=== PATIENT | male | born 1955 | race Caucasian/White ===

== ENCOUNTER 2018-09-19 16:20 | Inpatient (IN) ==
[2018-09-19] MEDS ORDERED: KETOROLAC TROMETHAMINE 15 MG/ML VIAL IV STA (16:54)
[2018-09-19] MEDS ORDERED: MoRPHine SULFATE 4 MG/ML 1 ML CARP\\VIAL IV STA ×2 (16:54→18:16)
[2018-09-19] MEDS ORDERED: ONDANSETRON INJ 2 MG/ML 2 ML VIAL IV STA (16:54)
[2018-09-19] MEDS ORDERED: SODIUM CHLORIDE 0.9% 1000ML 1,000 ML IV SCH (17:00)
[2018-09-19 17:25] LABS: Basophils # (auto) 0.02 K/uL (0-0.2); Basophils % (auto) 0.1 %; Hematocrit (blood only) 48.6 % (42-52); Hemoglobin 17.3 g/dL (14.0-18.0); Immature Granulocytes # (auto) 0.06 K/uL (0.00-0.02); Immature Granulocytes % (auto) 0.3 %; Lymphocytes # (auto) 0.55 K/uL (1.2-3.4); Lymphocytes % (auto) 3.2 %; Mean Corpuscular Hgb Conc 35.6 g/dL (32-36); Mean Corpuscular Volume 86.2 fL (80-100); Monocytes # (auto) 0.61 K/uL (0.11-0.59); Monocytes % (auto) 3.6 %; Neutrophils # (auto) 15.91 K/uL (1.4-6.5); Neutrophils % (auto) 92.8 %; Platelet Count 235 K/uL (130-400); RDW Coefficient of Variation 12.6 % (11.5-14.5); Red Blood Count 5.64 M/uL (4.7-6.1); White Blood Count 17.15 K/uL (4.8-10.8)
--- NOTE | 2018-09-19 17:42 | CT Scan Report ---
CT SCAN OF THE ABDOMEN AND PELVIS WITHOUT CONTRAST CLINICAL HISTORY: left flank and abd pain, hx kidney stones COMPARISON STUDY: 06/30/2016 TECHNIQUE: CT scan of the abdomen and pelvis was performed from the lung bases to the proximal femurs . Images are reviewed in the axial, sagittal, and coronal planes. IV contrast was not administered fo r this examination. A dose lowering technique was utilized adhering to the principles of ALARA. CT DOSE: 875.73 mGy.cm FINDINGS: Lower chest: There are mild dependent atelectatic changes. There are no significant pleural effusions . Liver: The unenhanced liver is normal in size, contour, and attenuation. There is no intrahepatic [place]red[place] iary ductal dilatation. Gallbladder: Unremarkable. Spleen: Normal in size and attenuation. Pancreas: Unremarkable. Adrenal glands: Unremarkable. Kidneys: 4 right renal calculi are visualized the largest of which measures 4 mm. There is a 9 mm low er pole left renal calculus. There is left-sided hydronephrosis and left-sided perinephric stranding. There is left-sided ureteral dilatation with moderate left-sided periureteral edema. There is fluid tracking along the left ureter likely secondary to forniceal rupture. There are 2 obstructing calculi at the level of the left ureterovesical junction measuring 9 mm and 8 mm respectively. Bowel: There are no transition zones indicate bowel obstruction. There is colonic diverticulosis. The re are no acute peridiverticular inflammatory changes. The appendix appears normal. Peritoneum: There is no intraperitoneal free air or abdominal ascites. Vasculature: The abdominal aorta is normal in course and caliber. Adenopathy: None. Pelvic viscera: There is mild prostatic enlargement. Skeletal structures: No destructive osseous lesions are seen. IMPRESSION: 1. Bilateral nephrolithiasis 2. There are 2 left UVJ calculi measuring 9 mm and 8 mm respectively. There are secondary obstructive changes with findings suggesting forniceal rupture. 3. No evidence of bowel obstruction. No evidence of free air 4. Normal appendix. No evidence of acute diverticulitis. Electronically signed by: Wesley Mario M.D. 09/19/2018 5:41 PM
[2018-09-19 17:45] LABS: Alanine Aminotransferase 33 U/L (12-78); Albumin Level 4.5 gm/dl (3.4-5.0); Aspartate Aminotransferase 24 U/L (15-37); BUN Creatinine Ratio 9.9 (10-20); Blood Urea Nitrogen 15 mg/dl (7-18); Calcium 9.1 mg/dl (8.5-10.1); Carbon Dioxide 28 mmol/L (21-32); Chloride 102 mmol/L (98-107); Est GFR (African American) 56.2; Est GFR (Non-African American) 48.5; Glucose 146 mg/dl (70-99); Potassium 4.3 mmol/L (3.5-5.1); Sodium 137 mmol/L (136-145)
[2018-09-19 17:48] LABS: Albumin Globulin Ratio 1.2 (0.9-2); Alkaline Phosphatase 101 U/L (45-117); Bilirubin,Total 0.8 mg/dl (0.2-1); Globulin 3.9 gm/dl (2.5-4.0); Total Protein 8.4 gm/dl (6.4-8.2)
[2018-09-19] MEDS ORDERED: KETOROLAC TROMETHAMINE 15 MG/ML VIAL IV ONE (18:17)
--- NOTE | 2018-09-19 18:57 | Emergency Department Note ---
Entered by Efrain Miramontes acting as a scribe for History of Present Illness General Chief complaint: Kidney Stone Stated complaint: LT KIDNEY PAIN, NAUSEA, VOMITING, CHILLS Time Seen by Provider: 09/19/18 16:27 Source: patient History of Present Illness Provider complaint: left flank pain Onset (ago): hour(s) 9 Location: back and abdomen Pain Consistency: + other (waxing and waning) Maximum Pain Intensity: 8 Quality: + other (kidney stone) Associated symptoms: + diaphoresis and + fever/chills; no nausea/vomiting (- vomiting) The patient is a 63 year old male who presents to the Emergency Room with complaints of waxing and waning left flank pain which started between 0900 and 1000 today. Patient also states he is experiencing back pain. The patient rates his pain at an 8/10. He is experiencing nausea and diarrhea but denies vomiting. He also reports experiencing chills and is sweating. Home Medications Home Medications Medication Instructions Recorded Confirmed Type aspirin [Aspirin Low Dose] 81 mg PO DAILY 09/19/18 09/19/18 History methylcellulose (with sugar) 1 tbsp PO DAILY 09/19/18 09/19/18 History [Citrucel (sucrose)] simvastatin 20 mg PO DAILY 09/19/18 09/19/18 History Allergies Allergy/AdvReac Type Severity Reaction Status Date / Time Sulfa (Sulfonamide Allergy HIVES Verified 09/19/18 17:38 Antibiotics) Past Med/Surg History Medical History Renal colic (Acute) Right ureteral calculus Social History Feels Safe at Home: Yes Smoking Status: Never smoker Preferred Language: Estonian Review of Systems See HPI for pertinent positives & negatives. and A total of 10 systems reviewed and were otherwise negative Physical Exam Vital Signs Vital Signs - 24 hr 09/19/18 16:23 09/19/18 18:30 09/19/18 18:39 Temperature 36.5 C Temperature Source Oral Sepsis Recent Fever Within 48 Hours No Sepsis New/Unexplained Change in Mental Status No Sepsis Action Taken by Nursing No Action Required Pulse Rate 68 68 Pulse Rate [Radial] 94 H Pulse Rhythm Regular Regular Pulse Rhythm [Radial] Regular Pulse Strength Normal Respiratory Rate 20 18 18 Respiratory Effort / Characteristics Non-Labored Spontaneous Respiratory Depth Normal Normal Respiratory Pattern Regular Blood Pressure 178/103 H Blood Pressure [Right Arm] 161/101 H Blood Pressure Mean 128 Blood Pressure Mean [Right Arm] 121 Blood Pressure Position Sitting Pulse Oximetry 95 95 95 Oxygen Delivery Method Room Air Room Air Room Air CONSTITUTIONAL/VITAL SIGNS: Reviewed / noted above. GENERAL: Non-toxic in appearance. INTEGUMENTARY: Warm, dry, and [place]. HEAD: Normocephalic. EYES: without scleral icterus or trauma. ENT/OROPHARYNX: clear and moist. LYMPHADENOPATHY/NECK: Is supple without lymphadenopathy or meningismus. RESPIRATORY: Lungs clear and equal. CARDIOVASCULAR: Regular rate and rhythm. GI/ABDOMEN: Soft and nontender. No organomegaly or pulsatile mass. No rebound or guarding. Normal bowel sounds. EXTREMITIES: Warm and well perfused. BACK: No CVA tenderness. NEUROLOGICAL: Intact without focal deficits. PSYCHIATRIC: normal affect. MUSCULOSKELETAL: Normally developed with good muscle tone. Course 162: Past medical records reviewed. The patient was evaluated in room A11, and a complete history and physical examination were performed. 1836- I spoke to hospitalist. Nohemi Angel who will evaluate the patient for further managment. 1845: I updated the patient who verbalized agreement and understanding of the treatment plan. Consultations Consultation #1: Nohemi Angel Time: 18:36 Administered Medications Discontinued Medications Sodium Chloride (Nss 1000ml) 1,000 mls @ 999 mls/hr IV .Q1H1M FRIDA Stop: 09/19/18 18:00 Last Infusion: 09/19/18 18:15 Dose: 0 mls/hr Admin: 09/19/18 17:12 Dose: 999 mls/hr Ketorolac Tromethamine (Toradol) 15 mg IV NOW STA Stop: 09/19/18 16:55 Last Admin: 09/19/18 17:12 Dose: 15 mg Morphine Sulfate (Morphine Sulfate) 4 mg IV NOW STA Stop: 09/19/18 16:55 Last Admin: 09/19/18 17:12 Dose: 4 mg Ondansetron HCl (Zofran) 4 mg IV NOW STA Stop: 09/19/18 16:55 Last Admin: 09/19/18 17:12 Dose: 4 mg Medical Decision Making Differential Diagnosis I considered cholelithiasis, cholecystitis, bowel obstruction, diverticulitis , pancreatitis, renal colic, appendicitis inflammatory bowel disease, gastritis , and peptic/gastric ulcer disease. Medical Records Attestation: I reviewed the patient's medical records. Home Medications Current Medication List: was personally reviewed by me Laboratory Data Attestation: I reviewed the patient's lab results. Result diagrams: 09/19/18 17:10 09/19/18 17:10 Lab Results 09/19/18 09/19/18 Range/Units 17:10 17:10 WBC 17.15 H (4.8-10.8) K/uL RBC 5.64 (4.7-6.1) M/uL Hgb 17.3 (14.0-18.0) g/dL Hct 48.6 (42-52) % MCV 86.2 (80-100) fL MCH 30.7 (25-34) pg MCHC 35.6 (32-36) g/dL RDW Std Deviation 40.0 (36.4-46.3) fL RDW Coeff of Diane 12.6 (11.5-14.5) % Plt Count 235 (130-400) K/uL MPV 9.0 (7.4-10.4) fL Immature Gran % (Auto) 0.3 % Neut % (Auto) 92.8 % Lymph % (Auto) 3.2 % [place] % (Auto) 3.6 % Eos % (Auto) 0.0 % Baso % (Auto) 0.1 % Immature Gran # (Auto) 0.06 H (0.00-0.02) K/uL Neut # (Auto) 15.91 H (1.4-6.5) K/uL Lymph # (Auto) 0.55 L (1.2-3.4) K/uL [place] # (Auto) 0.61 H (0.11-0.59) K/uL Eos # (Auto) 0.00 (0-0.5) K/uL Baso # (Auto) 0.02 (0-0.2) K/uL Sodium 137 (136-145) mmol/L Potassium 4.3 (3.5-5.1) mmol/L Chloride 102 (98-107) mmol/L Carbon Dioxide 28 (21-32) mmol/L Anion Gap 6.0 (3-11) BUN 15 (7-18) mg/dl Creatinine 1.51 H (0.6-1.4) mg/dl Est Cr Clr Drug Dosing Not Reportable Est GFR ( Amer) 56.2 Est GFR (Non-Af Amer) 48.5 BUN/Creatinine Ratio 9.9 L (10-20) Glucose 146 H (70-99) mg/dl Calcium 9.1 (8.5-10.1) mg/dl Total Bilirubin 0.8 (0.2-1) mg/dl AST 24 (15-37) U/L ALT 33 (12-78) U/L Alkaline Phosphatase 101 (45-117) U/L Total Protein 8.4 H (6.4-8.2) gm/dl Albumin 4.5 (3.4-5.0) gm/dl Globulin 3.9 (2.5-4.0) gm/dl Albumin/Globulin Ratio 1.2 (0.9-2) Lipase 74 (73-393) U/L Imaging Data Attestation: I personally reviewed and interpreted this imaging study as follows : Radiologist's Impression: Radiology results as stated below per my review and the radiologist's interpretation: CT SCAN OF THE ABDOMEN AND PELVIS WITHOUT CONTRAST CLINICAL HISTORY: left flank and abd pain, hx kidney stones COMPARISON STUDY: 06/30/2016 TECHNIQUE: CT scan of the abdomen and pelvis was performed from the lung bases to the proximal femurs. Images are reviewed in the axial, sagittal, and coronal planes. IV contrast was not administered for this examination. A dose lowering technique was utilized adhering to the principles of ALARA. CT DOSE: 875.73 mGy.cm FINDINGS: Lower chest: There are mild dependent atelectatic changes. There are no significant pleural effusions. Liver: The unenhanced liver is normal in size, contour, and attenuation. There is no intrahepatic biliary ductal dilatation. Gallbladder: Unremarkable. Spleen: Normal in size and attenuation. Pancreas: Unremarkable. Adrenal glands: Unremarkable. Kidneys: 4 right renal calculi are visualized the largest of which measures 4 mm. There is a 9 mm lower pole left renal calculus. There is left-sided hydronephrosis and left-sided perinephric stranding. There is left-sided ureteral dilatation with moderate left-sided periureteral edema. There is fluid tracking along the left ureter likely secondary to forniceal rupture. There are 2 obstructing calculi at the level of the left ureterovesical junction measuring 9 mm and 8 mm respectively. Bowel: There are no transition zones indicate bowel obstruction. There is colonic diverticulosis. There are no acute peridiverticular inflammatory changes. The appendix appears normal. Peritoneum: There is no intraperitoneal free air or abdominal ascites. Vasculature: The abdominal aorta is normal in course and caliber. Adenopathy: None. Pelvic viscera: There is mild prostatic enlargement. Skeletal structures: No destructive osseous lesions are seen. IMPRESSION: 1. Bilateral nephrolithiasis 2. There are 2 left UVJ calculi measuring 9 mm and 8 mm respectively. There are secondary obstructive changes with findings suggesting forniceal rupture. 3. No evidence of bowel obstruction. No evidence of free air 4. Normal appendix. No evidence of acute diverticulitis. Electronically signed by: Wesley Mario M.D. 09/19/2018 5:41 PM Blood Pressure Blood Pressure Findings: Elevated blood pressure Blood Pressure Disposition: further management by hospitalist MDM Narrative This is a 63-year-old male who presents to the ED with a chief complaint of abdominal pain and left-sided flank pain. The patient's symptoms started at 9: 30 in the morning. He had associated nausea but no vomiting. He states that he has not had any fevers or urinary symptoms. He reports some abdominal pain that feels like a band around his abdomen. He reports a history of kidney stones. His initial blood pressure was elevated. The patient has an relatively unremarkable exam. A CT scan of the abdomen pelvis reveals 2 ureteral stones at 9 mm and 8 mm. There is also evidence of secondary obstructive changes with suspected forniceal rupture. The white blood cell count is 17.5. The patient required several doses of pain medication here including IV Toradol and IV morphine. Because of his pain, the patient will be seen by the hospitalist for further evaluation and care. Impression & Plan Renal colic, Left ureteral stone Discharge Plan Visit Data Chief Complaint: Kidney Stone Stated Complaint: LT KIDNEY PAIN, NAUSEA, VOMITING, CHILLS ED Provider: Drew Lynn Discharge Problem: Renal colic, Left ureteral stone Patient Disposition: Being Evaluated by Hospitalist Forms Stand Alone Forms: [employer] Prescriptions Prescriptions: No Action aspirin [Aspirin Low Dose] 81 mg Tablet,Delayed Release (Dr/Ec) 81 mg PO DAILY RF: 0 simvastatin 20 mg tablet 20 mg PO DAILY RF: 0 methylcellulose (with sugar) [Citrucel (sucrose)] Powder 1 tbsp PO DAILY RF: 0 Referrals Referrals: Shahbaz Whitman [Primary Care Provider] - The scribe's documentation has been prepared under my direction and personally reviewed by me in its entirety. I confirm that the note above accurately reflects all work, treatment, procedures, and medical decision making performed by me.
[2018-09-19 19:32] LABS: Appearance Urine Clear (Clear); Bacteria Urine Automated Negative (Negative); Bilirubin Urine Negative (Negative); Cast Urine Automated 0 /lpf (0-5); Color Urine Yellow; Glucose Urine UA Trace (Negative); Ketones Urine 1+ (Negative); Leukocyte Esterase Urine Negative (Negative); Nitrite Urine Negative (Negative); Protein Urine Negative (Negative); Specific Gravity Urine 1.017 (1.000-1.030); Urobilinogen Urine Negative (Negative); WBC Urine Automated 0 /hpf (0-5)
[2018-09-19] MEDS ORDERED: HYDROmorphone INJ 0.5 MG/0.5 ML SYR IV PRN (20:08)
--- NOTE | 2018-09-19 21:03 | History & Physical Report ---
Date of Service September 19, 2018 Assessment & Plan (1) ARF (acute renal failure): Secondary to recurrent obstructive uropathy No sepsis Situational hypertension Hyperglycemia rule out DM ARTUR on CPAP GMF Analgesia Strain urine Monitor creatinine response to IV fluids Urology consult RE obstructive uropathy Check hemoglobin A1C DVT prophylaxis. Heparin subcu Full code History of Present Illness Chief Complaint: Left flank pain Primary Care Provider: Shahbaz Whitman History obtained from patient and records. Medical history significant for hyperlipidemia, urolithiasis, sleep apnea/ narcolepsy on CPAP Recent confinement June 2016 for right UVJ stone status post spontaneous passage. One day history of waxing and waning achy left flank pain similar to any stone pain accompanied by nausea and loose stools. Some chills, no actual fever, no hematuria. Medical History as above Surgical History : Procedures, hernia repair, tonsillectomy, hip surgery Family History : COPD, diabetes Personal/Social history : Non-smoker, no EtOH intake, [employer] employee Allergies Allergy/AdvReac Type Severity Reaction Status Date / Time Sulfa (Sulfonamide Allergy HIVES Verified 09/19/18 17:38 Antibiotics) Home Medications Home Medications Medication Instructions Recorded Confirmed Type aspirin [Aspirin Low Dose] 81 mg PO DAILY 09/19/18 09/19/18 History methylcellulose (with sugar) 1 tbsp PO DAILY 09/19/18 09/19/18 History [Citrucel (sucrose)] simvastatin 20 mg PO DAILY 09/19/18 09/19/18 History Past Med/Surg History Social History Current Living Situation: Spouse Current Living Situation Comment: Amanda Samuel- Other Information That Helps Us Care for You: No Feels Safe at Home: Yes Safety Concerns: Feels Safe At This Time Smoking Status: Never smoker Hx Alcohol Use: No Hx Substance Use: No Beliefs That Will Affect Care: None Communication Ability: Effective Review of Systems As per HPI, all 10 systems reviewed, all other ROS negative Physical Exam 2 Vital Signs (Past 24 Hours): Last Vital Signs Temp 36.5 C 09/19/18 16:23 Pulse 68 09/19/18 18:39 Resp 18 09/19/18 18:39 BP 161/101 H 09/19/18 18:30 Pulse Ox 95 09/19/18 18:39 Physical Exam: GENERAL: Slightly uncomfortable, pleasant, obese, no respiratory distress SKIN: Normal color, warm HEENT: [place] palpebral conjunctivae, no ptosis, dry buccal mucosa NECK : Supple, short neck, no tenderness CHEST : CTA, no tenderness HEART : RRR, no obvious murmurs ABDOMEN: Some distention, left-sided abdominal/flank tenderness EXTREMITIES : No LE swelling/tenderness, no other conspicuous deformities noted NEUROLOGIC : Coherent, no facial asymmetry, no other gross focality Results & Data Laboratory Results Laboratory Results WBC 17.15 K/uL (4.8-10.8) H 09/19/18 17:10 RBC 5.64 M/uL (4.7-6.1) 09/19/18 17:10 Hgb 17.3 g/dL (14.0-18.0) 09/19/18 17:10 Hct 48.6 % (42-52) 09/19/18 17:10 MCV 86.2 fL (80-100) 09/19/18 17:10 MCH 30.7 pg (25-34) 09/19/18 17:10 MCHC 35.6 g/dL (32-36) 09/19/18 17:10 RDW Std Deviation 40.0 fL (36.4-46.3) 09/19/18 17:10 RDW Coeff of Diane 12.6 % (11.5-14.5) 09/19/18 17:10 Plt Count 235 K/uL (130-400) 09/19/18 17:10 MPV 9.0 fL (7.4-10.4) 09/19/18 17:10 Immature Gran % (Auto) 0.3 % 09/19/18 17:10 Neut % (Auto) 92.8 % 09/19/18 17:10 Lymph % (Auto) 3.2 % 09/19/18 17:10 [place] % (Auto) 3.6 % 09/19/18 17:10 Eos % (Auto) 0.0 % 09/19/18 17:10 Baso % (Auto) 0.1 % 09/19/18 17:10 Immature Gran # (Auto) 0.06 K/uL (0.00-0.02) H 09/19/18 17:10 Neut # (Auto) 15.91 K/uL (1.4-6.5) H 09/19/18 17:10 Lymph # (Auto) 0.55 K/uL (1.2-3.4) L 09/19/18 17:10 [place] # (Auto) 0.61 K/uL (0.11-0.59) H 09/19/18 17:10 Eos # (Auto) 0.00 K/uL (0-0.5) 09/19/18 17:10 Baso # (Auto) 0.02 K/uL (0-0.2) 09/19/18 17:10 Sodium 137 mmol/L (136-145) 09/19/18 17:10 Potassium 4.3 mmol/L (3.5-5.1) 09/19/18 17:10 Chloride 102 mmol/L (98-107) 09/19/18 17:10 Carbon Dioxide 28 mmol/L (21-32) 09/19/18 17:10 Anion Gap 6.0 (3-11) 09/19/18 17:10 BUN 15 mg/dl (7-18) 09/19/18 17:10 Creatinine 1.51 mg/dl (0.6-1.4) H 09/19/18 17:10 Est Cr Clr Drug Dosing Not Reportable 09/19/18 17:10 Est GFR ( Amer) 56.2 09/19/18 17:10 Est GFR (Non-Af Amer) 48.5 09/19/18 17:10 BUN/Creatinine Ratio 9.9 (10-20) L 09/19/18 17:10 Glucose 146 mg/dl (70-99) H 09/19/18 17:10 Calcium 9.1 mg/dl (8.5-10.1) 09/19/18 17:10 Total Bilirubin 0.8 mg/dl (0.2-1) 09/19/18 17:10 AST 24 U/L (15-37) 09/19/18 17:10 ALT 33 U/L (12-78) 09/19/18 17:10 Alkaline Phosphatase 101 U/L (45-117) 09/19/18 17:10 Total Protein 8.4 gm/dl (6.4-8.2) H 09/19/18 17:10 Albumin 4.5 gm/dl (3.4-5.0) 09/19/18 17:10 Globulin 3.9 gm/dl (2.5-4.0) 09/19/18 17:10 Albumin/Globulin Ratio 1.2 (0.9-2) 09/19/18 17:10 Lipase 74 U/L (73-393) 09/19/18 17:10 Urine Color Yellow 09/19/18 19:06 Urine Appearance Clear (Clear) 09/19/18 19:06 Urine pH 7.0 (4.5-7.5) 09/19/18 19:06 Ur Specific [place] 1.017 (1.000-1.030) 09/19/18 19:06 Urine Protein Negative (Negative) 09/19/18 19:06 Urine Glucose (UA) Trace (Negative) H 09/19/18 19:06 Urine Ketones 1+ (Negative) H 09/19/18 19:06 Urine Blood 2+ (Negative) H 09/19/18 19:06 Urine Nitrite Negative (Negative) 09/19/18 19:06 Urine Bilirubin Negative (Negative) 09/19/18 19:06 Urine Urobilinogen Negative (Negative) 09/19/18 19:06 Ur Leukocyte Esterase Negative (Negative) 09/19/18 19:06 Urine WBC (Auto) 0 /hpf (0-5) 09/19/18 19:06 Urine RBC (Auto) >30 /hpf (0-4) H 09/19/18 19:06 U Hyaline Cast (Auto) 0 /lpf (0-5) 09/19/18 19:06 U Epithel Cells (Auto) 5-10 /lpf (0-5) H 09/19/18 19:06 Urine Bacteria (Auto) Negative (Negative) 09/19/18 19:[address] abdomen pelvis: 1. Bilateral nephrolithiasis 2. There are 2 left UVJ calculi measuring 9 mm and 8 mm respectively. There are secondary obstructive changes with findings suggesting forniceal rupture. 3. No evidence of bowel obstruction. No evidence of free air 4. Normal appendix. No evidence of acute diverticulitis. EKG as per my interpretation rate 90, NSR, T wave flattening septal leads
[2018-09-19] MEDS ORDERED: LORazepam 0.5 MG/1 ML VIAL IV PRN (22:28)
[2018-09-19] MEDS ORDERED: ACETAMINOPHEN 325 MG TAB PO PRN (22:28)
[2018-09-19] MEDS: SODIUM CHLORIDE 0.9% 1000ML 1,000 ML IV SCH (22:50)
[2018-09-20 06:24] LABS: Estimated Average Glucose 123 mg/dl
[2018-09-20 06:27] LABS: Basophils # (auto) 0.02 K/uL (0-0.2); Basophils % (auto) 0.1 %; Eosinophils % (auto) 0.6 %; Hematocrit (blood only) 45.1 % (42-52); Hemoglobin 15.3 g/dL (14.0-18.0); Immature Granulocytes # (auto) 0.04 K/uL (0.00-0.02); Immature Granulocytes % (auto) 0.3 %; Lymphocytes # (auto) 1.95 K/uL (1.2-3.4); Lymphocytes % (auto) 12.6 %; Mean Corpuscular Hgb Conc 33.9 g/dL (32-36); Mean Corpuscular Volume 87.2 fL (80-100); Mean Platelet Volume 9.2 fL (7.4-10.4); Monocytes # (auto) 1.46 K/uL (0.11-0.59); Monocytes % (auto) 9.4 %; Neutrophils # (auto) 11.88 K/uL (1.4-6.5); Platelet Count 242 K/uL (130-400); RDW Coefficient of Variation 12.9 % (11.5-14.5); RDW Standard Deviation 41.2 fL (36.4-46.3); Red Blood Count 5.17 M/uL (4.7-6.1); White Blood Count 15.45 K/uL (4.8-10.8)
[2018-09-20 06:33] LABS: INR 1.1 (0.9-1.1); Prothrombin Time 11.4 Seconds (9.0-12.0)
[2018-09-20] MEDS: HEPARIN SOD 5,000 UNIT/0.5 ML VIAL SQ SCH ×3 (07:03→20:54)
[2018-09-20 07:05] LABS: BUN Creatinine Ratio 12.2 (10-20); Calcium 8.3 mg/dl (8.5-10.1); Creatinine Clr Calc Pharmacy 54.2 ml/min; Est GFR (African American) 49.4; Est GFR (Non-African American) 42.6
[2018-09-20] MEDS: SIMVASTATIN 20 MG TAB PO SCH (07:11)
[2018-09-20] MEDS: SODIUM CHLORIDE 0.9% 1000ML 1,000 ML IV SCH ×2 (08:44→20:54)
[2018-09-20] MEDS: OXYCODONE/ACETAMINOPHEN 5mg/325mg TAB PO PRN (10:33)
--- NOTE | 2018-09-20 13:03 | Hospitalist Progress Note ---
Date of Service September 20, 2018 Assessment & Plan (1) ARF (acute renal failure): 2/2 obstructive uropathy. Per Urology (2) Renal colic: (3) Bilateral nephrolithiasis: (4) Acute unilateral obstructive uropathy: Flomax, IVF, pain control as needed. Urology consult. Pt is NPO. (5) ARTUR on CPAP: Declines CPAP inpatient. (6) DVT prophylaxis: Heparin/ambulation Full Dipso-per Urology Edith Dunn DO [facility] Hospitalist Subjective 63-year-old male with a history of nephrolithiasis presents with acute left- sided flank pain consistent with renal colic. Continue was found to have a 9 mm stone in the left UPJ and bilateral nephrolithiasis on imaging. Urology has been consulted. He has been placed on IV fluids and given Percocet for pain control to good effect. He does admit to drinking 3 cups of coffee a day plus one soda a day which is a recent cut back from his typical caffeine intake. Otherwise denies any other symptoms at this time. Physical Exam 2 Vital Signs (Past 24 Hours): Last Vital Signs Temp 37.1 C 09/20/18 07:35 Pulse 71 09/20/18 07:35 Resp 16 09/20/18 07:35 BP 124/74 09/20/18 07:35 Pulse Ox 94 09/20/18 07:35 CONSTITUTIONAL: WNWD, vitals as above, generally well-appearing EYES: normal conjuctivae, no scleral icterus ENT: MMM RESPIRATORY: clear to auscultation bilaterally, no crackles, rales or wheezes, normal respiratory effort CARDIOVASCULAR: regular rate and rhythm, S1 and 2 heard without murmurs, gallops or rubs, no edema GASTROINTESTINAL: normal bowel sounds, soft, nontender, nondistended, no CVA tenderness MUSCULOSKELETAL: strength 5/5 throughout, head is normocephalic and atraumatic SKIN: warm and dry NEUROLOGIC: CN 2-12 grossly intact, no sensory deficit, normal cognition PSYCHIATRIC: alert cooperative and oriented to person, place and time. Euthymic mood Results & Data Laboratory Results Short CBC 09/19/18 09/20/18 Range/Units 17:10 05:50 WBC 17.15 H 15.45 H (4.8-10.8) K/uL Hgb 17.3 15.3 (14.0-18.0) g/dL Hct 48.6 45.1 (42-52) % Plt Count 235 242 (130-400) K/uL BMP 09/19/18 09/20/18 09/20/18 17:10 05:50 07:17 Sodium 137 139 Potassium 4.3 3.9 Chloride 102 107 Carbon Dioxide 28 26 BUN 15 20 H Creatinine 1.51 H 1.68 H Glucose 146 H 99 Calcium 9.1 8.3 L Liver Function 09/19/18 Range/Units 17:10 Total Bilirubin 0.8 (0.2-1) mg/dl AST 24 (15-37) U/L ALT 33 (12-78) U/L Alkaline Phosphatase 101 (45-117) U/L Albumin 4.5 (3.4-5.0) gm/dl Urine 09/19/18 Range/Units 19:06 Urine Color Yellow Urine Appearance Clear (Clear) Urine pH 7.0 (4.5-7.5) Ur Specific [place] 1.017 (1.000-1.030) Urine Protein Negative (Negative) Urine Glucose (UA) Trace H (Negative) Medications Administered Current Inpatient Medications Acetaminophen (Tylenol) 650 mg PO Q4H PRN PRN Reason: pain/fever Stop: 10/19/18 22:27 Last Admin: 09/20/18 10:28 Dose: 650 mg Heparin Sodium (Porcine) (Heparin Sodium (Porcine)) 5,000 units SQ Q8 FRIDA Stop: 10/20/18 05:59 Last Admin: 09/20/18 13:02 Dose: Not Given Hydromorphone HCl (Dilaudid) 0.5 mg IV Q3H PRN PRN Reason: Pain Stop: 10/03/18 20:07 Last Admin: 09/20/18 02:09 Dose: 0.5 mg Lorazepam (Ativan) 0.5 mg in 1 mls @ 1 mls/min IV Q4H PRN PRN Reason: Anxiety/Agitation Stop: 10/19/18 22:27 Sodium Chloride (Nss 1000ml) 1,000 mls @ 100 mls/hr IV .Q10H FRIDA Stop: 10/19/18 22:39 Last Admin: 09/20/18 08:44 Dose: 100 mls/hr Methylcellulose (Citrucel) 2 gm PO DAILY FRIDA Stop: 10/20/18 13:44 Oxycodone/Acetaminophen (Percocet 5mg/325mg) 1 tab PO Q4H PRN PRN Reason: Pain Stop: 10/03/18 22:27 Last Admin: 09/20/18 10:33 Dose: 1 tab Simvastatin (Zocor) 20 mg PO DAILY [facility] Stop: 10/20/18 08:59 Last Admin: 09/20/18 07:11 Dose: 20 mg Tamsulosin HCl (Flomax) 0.4 mg PO Q24H [facility] Stop: 10/20/18 14:14
[2018-09-20] MEDS ORDERED: TAMSULOSIN HCL 0.4 MG CAP PO SCH (15:00)
--- NOTE | 2018-09-20 15:39 | Anesthesiology Consultation ---
Date of Service September 20, 2018 Assessment & Plan (1) Encounter for pre-operative examination: Chart Review Chart Review: Acceptable Risk for Surgery and Patient NOT seen in Pre Admission Testing Consults Requested none NPO Date Last Intake of Fluids: 09/20/18 Time Last Intake of Fluids: 00:00 Date Last Intake of Solids: 09/20/18 Time Last Intake of Solids: 00:00 History Surgery Operation Date: 09/20/18 17:00 Proposed Procedures p Left Ureteroscopy, Laser Lithotripsy - Basket Stone Extraction, and Stent - Christina Torres MD Height/Weight Height: 5 ft 9 in Weight: 106.85 kg Allergies Allergy/AdvReac Type Severity Reaction Status Date / Time Sulfa (Sulfonamide Allergy HIVES Verified 09/19/18 17:38 Antibiotics) Medications Home Medications Medication Instructions Recorded Confirmed Last Taken aspirin [Aspirin Low Dose] 81 mg PO DAILY 09/19/18 09/19/18 09/18/18 methylcellulose (with sugar) 1 tbsp PO DAILY 09/19/18 09/19/18 09/18/18 [Citrucel (sucrose)] simvastatin 20 mg PO DAILY 09/19/18 09/19/18 09/18/18 Active Medications Generic Name Dose Route Start Last Admin Trade Name Freq PRN Reason Stop Dose Admin Acetaminophen 650 mg 09/19/18 22:28 09/20/18 10:28 Tylenol PO 10/19/18 22:27 650 mg Q4H PRN Administration pain/fever Heparin Sodium (Porcine) 5,000 units 09/20/18 06:00 09/20/18 13:02 Heparin Sodium (Porcine) SQ 10/20/18 05:59 Not Given Q8 FRIDA Hydromorphone HCl 0.5 mg 09/19/18 20:08 09/20/18 02:09 Dilaudid IV 10/03/18 20:07 0.5 mg Q3H PRN Administration Pain Sodium Chloride 1,000 mls @ 100 mls/hr 09/19/18 22:40 09/20/18 08:44 Nss 1000ml IV 10/19/18 22:39 100 mls/hr .Q10H FRIDA Administration Oxycodone/Acetaminophen 1 tab 09/19/18 22:28 09/20/18 10:33 Percocet 5mg/325mg PO 10/03/18 22:27 1 tab Q4H PRN Administration Pain Simvastatin 20 mg 09/20/18 09:00 09/20/18 07:11 Zocor PO 10/20/18 08:59 20 mg DAILY FRIDA Administration Tamsulosin HCl 0.4 mg 09/20/18 15:00 09/20/18 15:19 Flomax PO 10/20/18 14:59 0.4 mg Q24H FRIDA Administration Past Medical History Medical History Renal colic (Acute) Acute renal failure Obesity Right ureteral calculus Sleep apnea Social History Smoking Status: Never smoker Hx Alcohol Use: No Hx Substance Use: No Physical Exam Vital Signs Last Vital Signs Temp 36.7 C 09/20/18 15:32 Pulse 68 09/20/18 15:32 Resp 18 09/20/18 15:32 BP 153/85 H 09/20/18 15:32 Pulse Ox 93 09/20/18 15:32 Testing Electrocardiogram Date: 09/19/18 Findings: + NSR @ (91) Other Testing CT SCAN OF THE ABDOMEN AND PELVIS WITHOUT CONTRAST CLINICAL HISTORY: left flank and abd pain, hx kidney stones COMPARISON STUDY: 06/30/2016 TECHNIQUE: CT scan of the abdomen and pelvis was performed from the lung bases to the proximal femurs. Images are reviewed in the axial, sagittal, and coronal planes. IV contrast was not administered for this examination. A dose lowering technique was utilized adhering to the principles of ALARA. CT DOSE: 875.73 mGy.cm FINDINGS: Lower chest: There are mild dependent atelectatic changes. There are no significant pleural effusions. Liver: The unenhanced liver is normal in size, contour, and attenuation. There is no intrahepatic biliary ductal dilatation. Gallbladder: Unremarkable. Spleen: Normal in size and attenuation. Pancreas: Unremarkable. Adrenal glands: Unremarkable. Kidneys: 4 right renal calculi are visualized the largest of which measures 4 mm. There is a 9 mm lower pole left renal calculus. There is left-sided hydronephrosis and left-sided perinephric stranding. There is left-sided ureteral dilatation with moderate left-sided periureteral edema. There is fluid tracking along the left ureter likely secondary to forniceal rupture. There are 2 obstructing calculi at the level of the left ureterovesical junction measuring 9 mm and 8 mm respectively. Bowel: There are no transition zones indicate bowel obstruction. There is colonic diverticulosis. There are no acute peridiverticular inflammatory changes. The appendix appears normal. Peritoneum: There is no intraperitoneal free air or abdominal ascites. Vasculature: The abdominal aorta is normal in course and caliber. Adenopathy: None. Pelvic viscera: There is mild prostatic enlargement. Skeletal structures: No destructive osseous lesions are seen. IMPRESSION: 1. Bilateral nephrolithiasis 2. There are 2 left UVJ calculi measuring 9 mm and 8 mm respectively. There are secondary obstructive changes with findings suggesting forniceal rupture. 3. No evidence of bowel obstruction. No evidence of free air 4. Normal appendix. No evidence of acute diverticulitis. Electronically signed by: Wesley Mario M.D. 09/19/2018 5:41 PM Laboratory Results 09/20/18 05:50 09/20/18 07:17 PT 11.4 Seconds (9.0-12.0) 09/20/18 05:50 INR 1.1 (0.9-1.1) 09/20/18 05:50 Hemoglobin A1c 5.9 % (4.5-5.6) H 09/19/18 17:10 Urine Color Yellow 09/19/18 19:06 Urine Appearance Clear (Clear) 09/19/18 19:06 Urine pH 7.0 (4.5-7.5) 09/19/18 19:06 Ur Specific [place] 1.017 (1.000-1.030) 09/19/18 19:06 Urine Protein Negative (Negative) 09/19/18 19:06 Urine Glucose (UA) Trace (Negative) H 09/19/18 19:06 Urine Ketones 1+ (Negative) H 09/19/18 19:06 Urine Nitrite Negative (Negative) 09/19/18 19:06 Ur Leukocyte Esterase Negative (Negative) 09/19/18 19:06 Urine WBC (Auto) 0 /hpf (0-5) 09/19/18 19:06 Urine RBC (Auto) >30 /hpf (0-4) H 09/19/18 19:06 U Hyaline Cast (Auto) 0 /lpf (0-5) 09/19/18 19:06 U Epithel Cells (Auto) 5-10 /lpf (0-5) H 09/19/18 19:06 Urine Bacteria (Auto) Negative (Negative) 09/19/18 19:06 09/20/18 Creatinine 1.68
[2018-09-20] MEDS ORDERED: MEPERIDINE HCL 25 MG/ML CARP IV PRN (16:18)
[2018-09-20] MEDS ORDERED: ONDANSETRON INJ 2 MG/ML 2 ML VIAL IV PRN (16:18)
[2018-09-20] MEDS ORDERED: ePHEDrine sulfate 50 MG/ML AMP IV PRN (16:18)
[2018-09-20] MEDS ORDERED: LABETALOL HCL IV 5 MG/ML 20ML IV PRN (16:18)
[2018-09-20] MEDS ORDERED: fentaNYL citrate 100 MCG/2 ML VIAL IV PRN (16:18)
[2018-09-20] MEDS ORDERED: PHENYLEPHRINE 100MCG/ML 5ML SYR IV PRN (16:18)
[2018-09-20] MEDS ORDERED: HYDROmorphone INJ 1 MG/ML SYRINGE IV PRN (16:18)
[2018-09-20] MEDS ORDERED: ATROPINE SULFATE 0.1 MG/ML 10ML SYR IV PRN (16:18)
[2018-09-20] MEDS ORDERED: LIDOCAINE HCL 2% 2 ML VIAL/AMP(20MG/ML) INFIL ONE (16:48)
[2018-09-20] MEDS ORDERED: MIDAZOLAM HCL 1 MG/ML 2ML VIAL ONE (16:48)
[2018-09-20] MEDS ORDERED: PROPOFOL IV EMULSION 10 MG/ML 20 ML VIAL IV ONE (16:48)
[2018-09-20] MEDS ORDERED: fentaNYL citrate 100 MCG/2 ML VIAL ONE (16:49)
[2018-09-20] MEDS ORDERED: ONDANSETRON INJ 2 MG/ML 2 ML VIAL ONE (16:49)
[2018-09-20] MEDS ORDERED: DEXAMETHASONE SOD INJ 4 MG/ML VIAL ONE (16:49)
--- NOTE | 2018-09-20 17:20 | Urology Consultation ---
Date of Consultation September 20, 2018 Assessment & Plan (1) Renal colic: left renal colic with large left distal obstructing stones with a likely left ruptured fornyx. plan left uscope laser litho basket stone stent. 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 The are obstructing cause hydro and it appears a foryx rupture. His pain improved likely from the rupture decreasing the pressures. He has had stones in the past and we have had to do surgery in past. Allergies Allergy/AdvReac Type Severity Reaction Status Date / Time Sulfa (Sulfonamide Allergy HIVES Verified 09/19/18 17:38 Antibiotics) Home Medications Home Medications Medication Instructions Recorded Confirmed Type aspirin [Aspirin Low Dose] 81 mg PO DAILY 09/19/18 09/19/18 History methylcellulose (with sugar) 1 tbsp PO DAILY 09/19/18 09/19/18 History [Citrucel (sucrose)] simvastatin 20 mg PO DAILY 09/19/18 09/19/18 History Patient History Social History Current Living Situation: Spouse Current Living Situation Comment: Amanda Samuel- Other Information That Helps Us Care for You: No Feels Safe at Home: Yes Safety Concerns: Feels Safe At This Time Smoking Status: Never smoker Hx Alcohol Use: No Hx Substance Use: No Beliefs That Will Affect Care: None Communication Ability: Effective Review of Systems Soc- employed, no tobacco ROS- no chest pain no shortness of breath, no constipation, + fever, + nausea, + emesis, no rash , no seizures, no confusion Physical Exam 2 Vital Signs (Past 24 Hours): Last Vital Signs Temp 36.9 C 09/20/18 16:23 Pulse 87 09/20/18 16:23 Resp 18 09/20/18 16:23 BP 171/94 H 09/20/18 16:23 Pulse Ox 96 09/20/18 16:23 Constitutional: WD/WN, vitals as above + obese Respiratory: normal respiratory effort, lungs clear to auscultation Cardiovascular: RRR, no murmur, no edema Gastrointestinal (Abdomen): normal bowel sounds, soft, nontender, no hepatosplenomegaly Skin: no rashes, warm and dry
[2018-09-20] MEDS ORDERED: CEFAZOLIN 2000MG 2,000 MG/15 ML SYR IV SCH (17:45)
[2018-09-20] MEDS ORDERED: ePHEDrine sulfate 50 MG/ML AMP ONE (17:47)
[2018-09-20] MEDS ORDERED: PHENYLEPHRINE 100MCG/ML 5ML SYR ONE (17:48)
[2018-09-20] MEDS ORDERED: SODIUM CHLORIDE 0.9% INJ 10 ML VIAL ONE (18:00)
[2018-09-20] MEDS ORDERED: BELLADONNA/OPIUM SUPP 60 MG SUPP PR ONE ×2 (18:01→18:04)
--- NOTE | 2018-09-20 18:34 | Operative Report ---
Post Operative Report Pre & Post Diagnosis Operation Date: 09/20/18 17:00 Pre-Op Diagnosis: Left distal ureteral stones Post-Op Diagnosis: Left distal ureteral stones Procedure Operation Date: 09/20/18 17:00 Actual Procedures p Cystoscopy,Left Ureteroscopy, Laser Lithotripsy - Basket Stone Extraction, and Stent placement (Left) - Christina Torres MD Surgeon Christina Torres MD Meat Supervisor none Estimated Blood Loss 0 Findings Consistent with Post-Op Diagnosis radio-opaque large left distal stones Fluids 700 Specimens left ureteral stone fragments Drains 6 fr 26 centimeter double J stent Anesthesia Type General Complications none Disposition Accompanied Patient To Recovery: Yes Disposition: Recovery Room Indications large obstructing left distal ureeral stones with a likely ruptured left fornyx Description of Procedure Patient was given general LMA anesthesia and placed in lithotomy position. His genitals were prepped and draped in sterile fashion. Time out held with team. I placed a 21 fr rigid cystoscope to bladder. The urethra is unremarkable. The prostate is medium and elevates the bladder neck a little. The bladder is clean. The UOs are slit shape normal location. I placed a road runner wire up left ureter with some resistance geting past the 2 radio-opaque distal ureteral stones. Once past stones I passed a 5 fr open ended cath and changed to a stiff wire. I used a dual lumen cath to calibrate the UVJ below the stones. I advanced a short semirigid ureteroscope along side the wire into the distal ureer. I used a 270 micron holmium laser to fragment the 2 sequential stones in the distal ureter into small pieces. I then used a 1.9 fr zero-tip stone basket to remove the dozens of stones and drop them in the bladder. The distal ureter is very edematous by the impacted stones and the lasering and basketing so I am planning to leave the stent in for longer than one week. I placed a 24 centimeter 6 Fr double J stent easily. There is brisk efflux after placement. I rinsed out the stone fragments from the bladder and I left bladder empty and concluded case. I placed a belladonna and opium suppository for post-op pain. He transferred to recovery under my escort, in stable condition. Plan: Home tomorrow Pyridium for dysuria x 3 days flomax daily oral pain meds as needed no further antibiotics needed. ASA 3 clean contaminated case 18 seconds fluoro ancef antibiotic superintendent distribution I attest to the content of the Intraoperative Record and any orders documented therein. Any exceptions are noted below.
[2018-09-20] MEDS ORDERED: PHENAZOPYRIDINE HCL 200 MG TAB PO PRN (18:36)
--- NOTE | 2018-09-20 18:47 | Fluoroscopy Report ---
FL KUB CLINICAL HISTORY: Left-sided ureteroscope, laser lithotripsy, stent placement COMPARISON STUDY: CT scan dated 09/19/2018 FLUOROSCOPY TIME: 19 seconds. NUMBER OF FLUOROSCOPIC IMAGES: 2 FINDINGS: 2 intraoperative fluoroscopic spot images reveal a double-pigtail left-sided nephroureteral stent. The proximal pigtail is not fully formed. IMPRESSION: Fluoroscopic spot images obtained during a left-sided ureteroscopy and laser lithotripsy . A left-sided double pigtail nephroureteral stent is visualized Electronically signed by: Wesley Mario M.D. 09/20/2018 6:45 PM
--- NOTE | 2018-09-20 18:58 | Anesthesiology Progress Note ---
Date of Service September 20, 2018 Anesthesia Post Procedure Vital Signs Vital Signs: Temp Pulse Pulse Pulse Pulse Resp BP 09/20/18 18:50 93 H 17 09/20/18 18:40 97 H 17 09/20/18 18:32 36.9 C 100 H 18 09/20/18 16:23 36.9 C 87 18 09/20/18 15:32 36.7 C 68 18 09/20/18 07:35 37.1 C 71 16 09/20/18 02:13 36.9 C 09/19/18 22:33 37.9 C H 96 H 18 09/19/18 22:10 37.9 C H 96 H 18 09/19/18 22:04 95 H 18 152/90 H 09/19/18 21:30 95 H 18 BP BP Pulse Ox 09/20/18 18:50 138/79 93 09/20/18 18:40 136/81 98 09/20/18 18:32 122/74 97 09/20/18 16:23 171/94 H 96 09/20/18 15:32 153/85 H 93 09/20/18 07:35 124/74 94 09/20/18 02:13 09/19/18 22:33 135/84 94 09/19/18 22:10 135/84 94 09/19/18 22:04 94 09/19/18 21:30 152/90 H 94 Pain Intensity Left Flank: Pain Intensity: 2 Notes Mental Status: alert / awake / arousable Patient Amnestic to Procedure: Yes Nausea / Vomiting: adequately controlled Pain: adequately controlled Airway Patency, RR, SpO2: stable & adequate BP & HR: stable & adequate Hydration State: stable & adequate Anesthetic Complications: no major complications apparent and Pt Satisfied with anesthetic care
[2018-09-20] MEDS: METHYLCELLULOSE POWDER 454 GM JAR PO SCH (20:05)
[2018-09-21] MEDS: SODIUM CHLORIDE 0.9% 1000ML 1,000 ML IV SCH (05:06)
[2018-09-21] MEDS: HEPARIN SOD 5,000 UNIT/0.5 ML VIAL SQ SCH (06:31)
[2018-09-21 06:32] LABS: Hemoglobin 13.8 g/dL (14.0-18.0); Mean Corpuscular Hgb Conc 34.5 g/dL (32-36); Mean Corpuscular Volume 86.6 fL (80-100); Platelet Count 215 K/uL (130-400); RDW Coefficient of Variation 12.7 % (11.5-14.5); RDW Standard Deviation 40.5 fL (36.4-46.3); Red Blood Count 4.62 M/uL (4.7-6.1); White Blood Count 12.11 K/uL (4.8-10.8)
[2018-09-21 07:10] LABS: BUN Creatinine Ratio 13.8 (10-20); Creatinine Clr Calc Pharmacy 86.7 ml/min; Est GFR (African American) 87.1; Est GFR (Non-African American) 75.2
[2018-09-21] MEDS: OXYCODONE/ACETAMINOPHEN 5mg/325mg TAB PO PRN (07:29)
--- NOTE | 2018-09-21 07:52 | Anesthesiology Progress Note ---
Date of Service September 21, 2018 Anesthesia Post Procedure Vital Signs Vital Signs: Temp Pulse Pulse Resp BP Pulse Ox 09/21/18 03:07 37.0 C 83 16 94/61 L 93 09/20/18 22:33 37.1 C 95 H 16 134/72 91 09/20/18 21:20 36.4 C L 86 16 137/83 92 09/20/18 20:20 36.7 C 90 18 146/82 H 91 09/20/18 19:50 36.9 C 88 16 131/77 92 09/20/18 19:20 37 C 87 16 134/75 93 09/20/18 19:10 36.9 C 90 22 127/69 94 09/20/18 19:00 91 H 19 125/72 95 09/20/18 18:50 93 H 17 138/79 93 09/20/18 18:40 97 H 17 136/81 98 09/20/18 18:32 36.9 C 100 H 18 122/74 97 09/20/18 16:23 36.9 C 87 18 171/94 H 96 09/20/18 15:32 36.7 C 68 18 153/85 H 93 Pain Intensity Left Flank: Pain Intensity: 2 Medial Head: Pain Intensity: 3 Notes Mental Status: alert / awake / arousable and participated in evaluation Nausea / Vomiting: adequately controlled Pain: adequately controlled Airway Patency, RR, SpO2: stable & adequate BP & HR: stable & adequate Hydration State: stable & adequate
[2018-09-21] MEDS: METHYLCELLULOSE POWDER 454 GM JAR PO SCH (08:59)
[2018-09-21] MEDS: SIMVASTATIN 20 MG TAB PO SCH (08:59)
[2018-09-21] MEDS ORDERED: [UNRECOGNIZED DRUG - OTHER] PO SCH (09:00)
[2018-09-21] MEDS ORDERED: ASPIRIN 81 MG ECTAB PO SCH (09:00)
--- NOTE | 2018-09-21 10:41 | Discharge Summary ---
Date of Service September 21, 2018 Admission HPI Per Admitting Provider History obtained from patient and records. Medical history significant for hyperlipidemia, urolithiasis, sleep apnea/narcolepsy on CPAP Recent confinement June 2016 for right UVJ stone status post spontaneous passage. One day history of waxing and waning achy left flank pain similar to any stone pain accompanied by nausea and loose stools. Some chills, no actual fever, no hematuria. Medical History as above Surgical History : Procedures, hernia repair, tonsillectomy, hip surgery Family History : COPD, diabetes Personal/Social history : Non-smoker, no EtOH intake, [employer] employee Admission Exam Per Admitting Provider GENERAL: Slightly uncomfortable, pleasant, obese, no respiratory distress SKIN: Normal color, warm HEENT: [place] palpebral conjunctivae, no ptosis, dry buccal mucosa NECK : Supple, short neck, no tenderness CHEST : CTA, no tenderness HEART : RRR, no obvious murmurs ABDOMEN: Some distention, left-sided abdominal/flank tenderness EXTREMITIES : No LE swelling/tenderness, no other conspicuous deformities noted NEUROLOGIC : Coherent, no facial asymmetry, no other gross focality Principal Diagnosis Obstructive uropathy s/p ureteroscopy and stone removal with ureteral stent placement on left CHRIS-resolved. Discharge Data Allergies Allergy/AdvReac Type Severity Reaction Status Date / Time Sulfa (Sulfonamide Allergy HIVES Verified 09/19/18 17:38 Antibiotics) Consultations 09/19/18 18:55 ED Decision to Admit Stat 09/19/18 22:28 Consult Urology Routine Procedures Performed Operation Date: 09/20/18 17:00 Actual Procedures p Cystoscopy,Left Ureteroscopy, Laser Lithotripsy - Basket Stone Extraction(Left) - Christina Torres MD s Stent placement (Left) - Christina Torres MD Ordered Studies 09/19/18 16:54 CT abd pelvis wo con Stat 09/20/18 17:00 FL KUB Routine FL fluoroscopy <1hr Routine Hospital Course (1) ARF (acute renal failure): Secondary to recurrent obstructive uropathy No sepsis Situational hypertension Hyperglycemia rule out DM ARTUR on CPAP GMF Analgesia Strain urine Monitor creatinine response to IV fluids Urology consult RE obstructive uropathy Check hemoglobin A1C DVT prophylaxis. Heparin subcu Full code (2) Bilateral nephrolithiasis: (3) Left ureteral stone: (4) Acute unilateral obstructive uropathy: 63-year-old man presented to the emergency room with left flank pain consistent with ureteral colic. On arrival to the ER he was hemodynamically stable and afebrile with a blood pressure of 178/103, oxygeenating well on room air. He received Toradol, morphine, Zofran and normal saline in the ER. Workup revealed a white count of 17 K, BUN 15, creatinine 1.51. Electrolytes were normal. No UTI was present. CT scan of the abdomen pelvis revealed bilateral nephrolithiasis, 2 left UVJ calculi measuring 9 mm and 8 mm with secondary obstructive changes and findings suggesting forniceal rupture. He was admitted to the hospitalist service. Urology was consulted. On 09/20 he underwent a cystoscopy, left ureteroscopic, laser lithotripsy with basket stone extraction and stent placement by Dr. Torres. Flomax was continued, Pyridium was ordered for dysuria times 3 days and no further antibiotics were recommended. The following day he was improved from a symptom standpoint and was hemodynamically stable and afebrile, tolerating p.o. He was mentating and ambulating at baseline. Physical exam was unremarkable. White blood cell count came down to 12 K. His CHRIS resolved with a BUN 15, creatinine 1.05 on day of discharge. He was discharged in stable condition with close primary care follow-up and urology follow-up recommended. Total Time Total Time Spent Total Time Spent (In Minutes): 60 Total Time Includes: Examination of the Patient, Discharge Planning, Medication Reconciliation and Communication With Other Providers Discharge Plan Discharge Items Patient Disposition: Home - Self-Care Reason For Visit: OBSTRUCTIVE UROPATHY Discharge Diagnosis: Obstructive uropathy s/p ureteroscopy and stone removal w ith ureteral stent placement on left CHRIS-resolved. Condition: Good Discharge Goals: Improve disease control Activity: Resume your previous activity Non-emergency contact: Primary Care Provider and Urologist Call non-emergency contact if: you have any medication questions, your symptoms worsen, your pain is not controlled, your pain is worsening, your pain is unusual for you, your pain is concerning for you and you have a fever Diet: Heart Healthy Addtl Provider Instructions: Please take all medications as prescribed below. You are taking PYRIDIUM which will turn your urine orange. This is prescribed for the next 3 days to help with pain with urination. You will also take FLOMAX until seen by Urology again in follow-up or if otherwise instructed by a physician. Please follow-up with your primary care physician within one week of discharge. It was a pleasure taking care of you! Please call if you have any questions or problems. You can reach a [facility] hospitalist on duty at [facility] 24 hours a day by calling [phone]. Take care of yourself. Edith Dunn, DO [facility] Prescriptions: New tamsulosin 0.4 mg Capsule 0.4 mg PO Q24H Qty: 30 RF: 1 phenazopyridine [Pyridium] 200 mg Tablet 200 mg PO TID PRN (Reason: painful urination) Qty: 10 RF: 0 Continued aspirin [Aspirin Low Dose] 81 mg Tablet,Delayed Release (Dr/Ec) 81 mg PO DAILY RF: 0 simvastatin 20 mg tablet 20 mg PO DAILY RF: 0 methylcellulose (with sugar) [Citrucel (sucrose)] Powder 1 tbsp PO DAILY RF: 0 Stand-Alone Forms: My [facility] Discharge Orders: Discharge Order (Routine); Ordered 09/21/18 Ordered By: Edith Dunn Admission Data Admit Date/Time: 09/19/18 21:06 Attending Provider: Edith Dunn Admit Provider: Phillip Jim Primary Care Provider: Shahbaz Whitman Other Providers: Christina Torres Service: Surgical Services Other Interventions: Discharge Summary Assessment (RN) Last Done: 09/21/18 11:17 DC Date/Time DO NOT enter until pt leaves facility: 09/21/18 12:10
[2018-09-27 09:35] LABS: Component 2 DNR
== END 2018-09-21 12:10 | disposition home or self-care (01) | DRG 660 ==
LOC: ED 16:20 → 3N 21:06
DX: N17.9 Acute kidney failure, unspecified; I10 Essential (primary) hypertension; R73.9 Hyperglycemia, unspecified; N20.1 Calculus of ureter